=== PATIENT | male | born 1990 | race African-American/Black ===

== ENCOUNTER 2016-10-18 01:11 | Emergency (ER) | payer OTHER ==
[~2016-10-18] VITALS: Ht 185.4 cm; Wt 113.6 kg
[~2016-10-18 01:11] MED LIST: CIPR3.5O LEFT EYE
[2016-10-18 01:18] VITALS: BP 132/79; PULSE 88; RESP 24; TEMP 98.3; O2SAT 100
[2016-10-18] MEDS ORDERED: VENTAER INH (01:26)
[2016-10-18] MEDS ORDERED: SODIUM CHLORIDE 0.9% FLUSH 10 ML FLUSH IVF PRN (02:15)
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
[2016-10-18 02:26] LABS: AUTOMATED NEUTROPHIL # 11.1 TH/MM3 (1.8-7.7); BASOPHIL # 0.1 TH/MM3 (0-0.2); BASOPHIL % 0.5 % (0.0-2.0); EOSINOPHIL % 0.1 % (0.0-4.0); HEMATOCRIT 40.6 % (39.0-51.0); HEMO FLAGS DIFF FINAL; LYMPH % 11.9 % (9.0-44.0); LYMPHOCYTE # 1.6 TH/MM3 (1.0-4.8); MEAN CELL VOLUME 86.9 FL (80.0-100.0); MEAN CORPUSCULAR HEMOGLOBIN 29.3 PG (27.0-34.0); MEAN CORPUSCULAR HGB CONC 33.7 % (32.0-36.0); MONO % 6.4 % (0.0-8.0); NEUT % 81.1 % (16.0-70.0); PLATELET COUNT 293 TH/MM3 (150-450); RED BLOOD COUNT 4.67 MIL/MM3 (4.50-5.90); RED CELL DISTRIBUTION WIDTH 14.5 % (11.6-17.2); WHITE BLOOD COUNT 13.7 TH/MM3 (4.0-11.0)
--- NOTE | 2016-10-18 02:50 | RADRPT ---
EXAM DATE/TIME: 10/18/2016 02:12 [facility] COMPARISON: No previous studies available for comparison. INDICATIONS : Palpitations. MEDICAL HISTORY : None. SURGICAL HISTORY : None. ENCOUNTER: Initial ACUITY: 1 day PAIN SCORE: 0/10 LOCATION: Bilateral chest FINDINGS: A single view of the chest demonstrates the lungs to be symmetrically aerated without evidence of mas s, infiltrate or effusion. The cardiomediastinal contours are unremarkable. Osseous structures are intact. CONCLUSION: No evidence of acute cardiopulmonary disease. Kin Bell MD on October 18, 2016 at 2:48 Board Certified Radiologist. This report was verified electronically.
[2016-10-18 02:58] LABS: ALT (GPT) 20 U/L (12-78); ANION GAP 8 MEQ/L (5-15); AST (GOT) 18 U/L (15-37); BICARBONATE 26.4 MEQ/L (21.0-32.0); BLOOD UREA NITROGEN 15 MG/DL (7-18); CHLORIDE 107 MEQ/L (98-107); GLOMERULAR FILTRATION RATE 93 ML/MIN (>89); MAGNESIUM 2.1 MG/DL (1.5-2.5); POTASSIUM 4.1 MEQ/L (3.5-5.1); SODIUM (NA) 141 MEQ/L (136-145)
--- NOTE | 2016-10-18 02:59 | RADRPT ---
EXAM DATE/TIME: 10/18/2016 02:50 [facility] COMPARISON: No previous studies available for comparison. INDICATIONS : Dizziness. RADIATION DOSE: ?61.07 CTDIvol (mGy) MEDICAL HISTORY : None SURGICAL HISTORY : None. ENCOUNTER: Initial ACUITY: 1 day PAIN SCALE: 0/10 LOCATION: cranial TECHNIQUE: Multiple contiguous axial images were obtained of the head. Using automated exposure control and adj ustment of the mA and/or kV according to patient size, radiation dose was kept as low as reasonably a chievable to obtain optimal diagnostic quality images. FINDINGS: CEREBRUM: The ventricles are normal for age. No evidence of midline shift, mass lesion, hemorrhage or acute in farction. No extra-axial fluid collections are seen. POSTERIOR FOSSA: The cerebellum and brainstem are intact. The 4th ventricle is midline. The cerebellopontine angle i s unremarkable. EXTRACRANIAL: The visualized portion of the orbits is intact. A 16mm right ethmoid mucous retention cyst noted. SKULL: The calvaria is intact. No evidence of skull fracture. CONCLUSION: No intracranial abnormality demonstrated. Mild sinus disease. Kin Bell MD on October 18, 2016 at 2:56 Board Certified Radiologist. This report was verified electronically.
[2016-10-18] MEDS ORDERED: RESP: ALBUTEROL 2.5 MG/3 ML NEB (SCH) INH ONE (03:00)
[2016-10-18 03:01] LABS: ALKALINE PHOSPHATASE 81 U/L (45-117); CREATINE KINASE 270 U/L (39-308); TOTAL BILIRUBIN ADULT 0.2 MG/DL (0.2-1.0)
[2016-10-18 03:14] LABS: CKMB 0.6 NG/ML (0.5-3.6)
[2016-10-18] MEDS ORDERED: LORazepam 2 MG/ML VIAL IV PUSH ONE (03:30)
--- NOTE | 2016-10-18 10:01 | EKG ---
Date Performed: 10/18/2016 Time Performed: 02:20:35 PTAGE: 25 years EKG: Sinus rhythm WITH FIRST DEGREE AV BLOCK MINIMAL VOLTAGE CRITERIA FOR LVH, CONSIDER NORMAL VARIANT NONSPECIFIC ST & T-WAVE ABNORMALITY ABNORMAL ECG NO PREVIOUS TRACING DOCTOR: Eric Epps Interpretating Date/Time 10/18/2016 09:59:37
== END 2016-10-18 04:06 ==
LOC: NEPC 01:11
DX: F41.8 Other specified anxiety disorders (principal); J45.909 Unspecified asthma, uncomplicated; R07.89 Other chest pain; R06.02 Shortness of breath; Z72.0 Tobacco use
CPT/HCPCS: 70450; 71010; 80053; 82550; 82552; 83735; 84484; 85025; 93005; 94664; 96374; 99285; J2060; J7613